=== PATIENT | female | born 1985 | race Caucasian/White ===

== ENCOUNTER 2022-03-17 07:06 | Outpatient (CLI) | payer OTHER, SELFPAY ==
--- NOTE | 2022-03-17 07:15 | CRLHL7_ITS ---
For Patients: As a result of the Century Cures Act, medical imaging exams and procedure reports are released immediately into your electronic medical record. You may view this report before your referring provider. If you have questions, please contact your health care provider. INDICATION: Lumbar radiculopathy. COMPARISON: 03/03/2022. TECHNIQUE: Sagittal T1, T2, and STIR sequences. Axial T2/gradient sequences. FINDINGS: Normal vertebral body alignment. No fractures. No vertebral body loss of height. No spondylolisthesis. No ligamentous injury. No suspicious osseous lesions. Number conus terminates at L1-2. Vertebral body hemangiomas at T12 and L1. T12-L1 L1-2 L2-3: No spinal canal neural foraminal narrowing. L3-4: Disc degeneration and posterior disc bulge. Tiny central annular fissure. Mild narrowing of spinal canal. Mild narrowing of the bilateral foramina. L4-5: Disc degeneration and posterior disc bulge. Flattening of ventral thecal sac mild narrowing of spinal canal. No neural foraminal narrowing. L5-S1: Disc degeneration loss of disc height. Diffuse disc bulge. There is a left paracentral subarticular disc protrusion measuring 7 mm in short axis. [id number] narrowing of spinal canal. Impingement of the traversing left S1 nerve root. Mild narrowing of bilateral foramina. Normal visualized SI joints. IMPRESSION: 1. Normal alignment. No fractures 2. At L3-4, posterior disc bulge. Tiny central annular fissure. Mild narrowing of the spinal canal and bilateral neural foramina 3. At L4-5, mild narrowing of the spinal canal 4. At L5-S1, left paracentral and subarticular disc protrusion. Mild to moderate narrowing of spinal canal. Impingement of the traversing left S1 nerve root. Mild narrowing of the bilateral neural foramina Dictated by Justino Parker MD @ 03/17/2022 3:30:39 PM (Electronically Signed)
== END 2022-03-17 07:07 | disposition home or self-care (01) ==
LOC: MRI 07:06
PROVIDERS: PCP Family Medicine; Visit Provider Physician Assistant
DX: M54.16 Radiculopathy, lumbar region (principal); M51.36 Other intervertebral disc degeneration, lumbar region; M51.26 Other intervertebral disc displacement, lumbar region; M51.37 Other intervertebral disc degeneration, lumbosacral region
CPT/HCPCS: 72148

== ENCOUNTER 2022-04-09 15:47 | Emergency (ER) | payer OTHER, SELFPAY ==
[2022-04-09 16:58] VITALS: BP 147/87; PULSE 80; RESP 18; TEMP 36.3; O2SAT 100; BMI 52.6
[2022-04-09] MEDS: predniSONE 10 MG TABLET 60 MG PO (18:09)
--- NOTE | 2022-04-09 18:35 | ED.GENADULT ---
HPI - General Adult General Date Seen: 04/09/22 Chief complaint: Back Injury/Pain Stated complaint: Back Pain, Left Leg Numbness Time Seen by Provider: 04/09/22 17:20 Source: patient History of Present Illness HPI narrative: Patient is a 37-year-old woman who presents with left lumbar radiculopathy secondary to known disc herniation with impingement of the S1 nerve root. She has had pain since February, she had an MRI done on March 17, she had a steroid injection done about 12 days ago. She said she had good pain relief with the lidocaine, had no pain for about 12 hours but then as the lidocaine wore off pain returned. She is scheduled to talk to her spine surgeon again on Monday, he has suggested that a diskectomy is likely the next step. She has been prescribed gabapentin and tramadol. She has had poor pain relief with those medications. She has pain in her left gluteal area which extends down to her left foot, and now she has some numbness in the ankle region as well. She does not have any weakness. She has not had any bowel or bladder changes. She has not had any fevers, nausea vomiting or other symptoms. She is not able to take ibuprofen secondary to previous VSG, although she has tried taking a couple of doses. That has not been helpful either. Related Data Previous Rx's Medication Instructions Recorded gabapentin 100 mg capsule 100 mg PO .UD #56 cap 03/18/22 gabapentin 300 mg capsule 300 mg PO QDAY #60 cap 03/26/22 alprazolam 1 mg tablet 1 mg PO QDAY #2 tab 03/28/22 tramadol 50 mg tablet 50 mg PO TID PRN #30 tab 03/29/22 tramadol 50 mg tablet 50 mg PO TID PRN #30 tab 03/29/22 gabapentin 300 mg capsule 300 mg PO TID #60 cap 04/09/22 oxycodone 5 mg tablet 5 mg PO Q6H PRN #14 tab 04/09/22 prednisone 20 mg tablet 20 mg PO DAILY #18 tab 04/09/22 Allergies Allergy/AdvReac Type Severity Reaction Status Date / Time No Known Drug Allergies Allergy Verified 03/26/22 10:17 Review of Systems Status of ROS: Reports: 10 or more systems reviewed and unremarkable except as noted in History and below PFSH PFSH Social History Smoking Status: Never smoker How often do you have a drink containing alcohol: never AUDIT-C Alcohol total score: 0 Non-prescribed substance use: denies use Exam Narrative: Exam Narrative: Vital signs as noted below. In general, an alert, nontoxic woman. Significantly overweight. Head: Normocephalic, atraumatic. Eyes: Pupils are equal reactive. Extraocular movements are full. Conjunctivae are normal. ENT: Mucous membranes are moist. Neck: Supple without lymphadenopathy. Heart: Regular rate and rhythm. No murmur or rub. Lungs: Clear bilaterally. No increased work of breathing, crackles or wheezes. Extremities: Well perfused. No edema. No calf tenderness. Pulses intact. Neurologic: Strength equal in bilateral lower extremities. Gait normal. Affect: Tearful. Skin: Warm and dry. Well perfused. Const: Vital Signs, click to edit/add: Vital Signs - 24 hr 04/09/22 16:58 Temperature 97.3 F L Pulse Rate [Right Pulse Oximeter] 80 Respiratory Rate 18 Blood Pressure [Ri ght Upper Arm] 147/87 H Pulse Oximetry 100 Documenting provider has reviewed patient's vital signs: yes Course Course Hospital Course: I had a fairly lengthy conversation with her. I do think tramadol may not be the best choice for her, and if we are going to use a narcotic we might as well as use something that is be more beneficial for her. I do think trying her on a steroid taper is reasonable, she was on brief few days of prednisone previously which she does not find helpful but I would like to try her on more targeted taper for back pain. She is willing to try that. She is out of gabapentin would like that refilled as well as that is been helping with sleep. I would like her to take Tylenol 1000 mg 3 times daily. I am going to give her oxycodone to use for breakthrough pain. I have discussed with her that using this now is likely going to give her more difficulty with pain control postoperatively assuming she does decide to pursue diskectomy, as she is going to be sensitized to narcotics. She understands this. She is having significant difficulty managing at home with her toddler, she has been managing with this pain for over a month and does not feel that she can continue as she has been, so we will go this route and she will follow up with her surgeon this week to discuss more definitive solutions. I do think that is reasonable given that she has an identifiable lesion on MRI that is amenable to surgery. Vital Signs Vital signs: Initial Vital Signs Temperature 97.3 F L 04/09/22 16:58 Temperature Source Temporal Artery Scan 04/09/22 16:58 Pulse Rate 80 04/09/22 16:58 Respiratory Rate 18 04/09/22 16:58 Blood Pressure 147/87 H 04/09/22 16:58 Blood Pressure Mean 107 04/09/22 16:58 Blood Pressure Position Sitting 04/09/22 16:58 Pulse Oximetry 100 04/09/22 16:58 Oxygen Delivery Method 04/09/22 16:58 Vital Signs Temperature 97.3 F L 04/09/22 16:58 Pulse Rate 80 04/09/22 16:58 Respiratory Rate 18 04/09/22 16:58 Blood Pressure 147/87 H 04/09/22 16:58 Pulse Oximetry 100 04/09/22 16:58 Temperature 97.3 F L 04/09/22 16:58 Pulse Rate 80 04/09/22 16:58 Respiratory Rate 18 04/09/22 16:58 Blood Pressure 147/87 H 04/09/22 16:58 Pulse Oximetry 100 04/09/22 16:58 Discharge Plan Discharge Clinical Impression: Acute lumbar radiculopathy Patient Disposition: Home, Self-Care Condition: Stable Instructions: Lumbar Radiculopathy (ED) Additional Instructions: Tylenol 1000 mg 3 times daily. Oxycodone as needed for breakthrough pain. Prednisone taper as prescribed. Follow-up with your spine surgeon on Monday as planned. Continue gabapentin as previously taking. Prescriptions: New gabapentin 300 mg capsule 300 mg PO TID Qty: 60 2RF Rx Instructions: 300 mg morning and afternoon 600 mg at bedtime oxycodone 5 mg tablet 5 mg PO Q6H PRN (Reason: pain) Qty: 14 0RF prednisone 20 mg tablet 20 mg PO DAILY Qty: 18 0RF Rx Instructions: Take 3 tabs po x 3 days, then 2 tabs po x 3 days, then 1 tab po x 3 days. No Action gabapentin 300 mg capsule 300 mg PO QDAY Qty: 60 0RF Rx Instructions: take two cap po in evening for back pain gabapentin 100 mg capsule 100 mg PO .UD Qty: 56 0RF Rx Instructions: Patient to take one cap am and noon and 6 caps at HS alprazolam 1 mg tablet 1 mg PO QDAY Qty: 2 0RF tramadol 50 mg tablet 50 mg PO TID PRN (Reason: pain) Qty: 30 0RF tramadol 50 mg tablet 50 mg PO TID PRN (Reason: pain) Qty: 30 0RF Rx Instructions: 1 tablet up to 3 times a day for severe pain only. Use in addition to gabapentin 600 mg at bedtime Follow Up/Referrals: Tran Alvarenga MD [Primary Care Provider] - Stand Alone Forms: MyHealth Info Instructions
== END 2022-04-09 18:35 | disposition home or self-care (01) ==
PROVIDERS: Emergency Provider Emergency Medicine; PCP Family Medicine
DX: M54.50 Low back pain, unspecified (principal)
CPT/HCPCS: 99283; 99284; J7512

== ENCOUNTER 2023-12-08 13:57 | Emergency (ER) | payer OTHER, SELFPAY ==
[2023-12-08] VITALS (21 sets, daily range): BP systolic 179–213; BP diastolic 112–127; PULSE 68–83; RESP 18–20; TEMP 36.5; O2SAT 96–100; BMI 56.1
--- NOTE | 2023-12-08 14:37 | ED.GENADULT ---
HPI - General Adult General Date Seen: 12/08/23 Chief complaint: Abdominal Pain Stated complaint: sharp abdominal pain, vomiting Time Seen by Provider: 12/08/23 14:36 History of Present Illness HPI narrative: 38-year-old female with a history of prothrombin gene mutation and pulmonary embolism, hypothyroidism, obesity, low back pain with left lumbar radiculopathy, anxiety, presenting to the ER this afternoon with her for abrupt onset of severe left lower quadrant abdominal pain that began less than hour prior to arrival this afternoon. She denies any recent unusual symptoms other than for about the past 5 or 6 months her mental cycle has been very irregular and heavy and more painful than. Over most of her life she has had fairly predictable periods but over the past several months periods have been heavier, not occurring at regular intervals and painful. Most recent period started about fiber 6 days ago and actually ended yesterday. She was having some right-sided pelvic pain with that. But not much beyond the left side today she had not yet gone to her doctor to getting checkup for the irregular periods. No other symptoms lately. No fever chills. No nausea or vomiting. Bowel movements have been normal. Urination has been normal. No known injury. No cough. No rib pain. She was at home when she has had sudden onset of really severe pain in her left lower quadrant. Does not really radiate. It was so intense it made her nauseous and vomit once or twice with nonbilious nonbloody emesis. She was shaking and crying due to the pain. Related Data Home Medications Medication Instructions Recorded Confirmed acetaminophen 325 mg capsule 1,000 mg PO TID PRN 04/14/22 08/25/23 (Tylenol) Allergies Allergy/AdvReac Type Severity Reaction Status Date / Time codeine Allergy Intermediate Nausea Verified 08/25/23 09:03 [facility] Medical History (Updated 12/08/23 @ 18:32 by Kwasi Vyas MD) Obstructive sleep apnea treated with continuous positive airway pressure (CPAP) ?G47.33 - Obstructive sleep apnea (adult) (pediatric) (ICD-10) ?Z99.89 - Dependence on other enabling machines and devices (ICD-10) Morbid obesity ?E66.01 - Morbid (severe) obesity due to excess calories (ICD-10) Hypothyroidism ?E03.9 - Hypothyroidism, unspecified (ICD-10) Hypertension ?I10 - Essential (primary) hypertension (ICD-10) History of pulmonary embolism (08/2019) ?Z86.711 - Personal history of pulmonary embolism (ICD-10) Fatigue ?R53.83 - Other fatigue (ICD-10) Encounter for supervision of high risk in second trimester, antepartum ?O09.92 - Supervision of high risk , unspecified, second trimester (ICD-10) Surgical History (Updated 05/05/22 @ 15:25 by Tran Alvarenga MD) S/P epidural steroid injection (03/29/22) ?Z92.241 - Personal history of systemic steroid therapy (ICD-10) History of sleeve gastrectomy (12/11/18) ?Z90.3 - Acquired absence of stomach [part of] (ICD-10) History of cholecystectomy (12/2018) ?Z90.49 - Acquired absence of other specified parts of digestive tract (ICD-10) History of bladder surgery (1993) ?Z98.890 - Other specified postprocedural states (ICD-10) Family History (Updated 04/13/22 @ 15:10 by Rudy Santos) Mother Diabetes Aunt Diabetes Maternal Grandfather Diabetes Father Family history of early CAD, Onset Age: 45 Brother Paranoid schizophrenia Paternal Grandfather Stroke Other Uterine cancer Social History (Updated 06/03/22 @ 09:02 by Tran Alvarenga MD) Narrative: Exercise involving walking and biking , teenage program director alexys, 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 Over nourished. Alert. Conversant. Non toxic. HENT: Head: Atraumatic. Nose: Nose normal. Mouth/Throat: Oral mucosa is clear and moist. no trismus. Pharynx normal. Tonsils symmetric. No tonsillar enlargement, erythema, or exudate. Eyes: Conjunctivae normal. EOM normal. Pupils equal, round, and reactive to light. No scleral icterus. Neck: Normal range of motion. Neck supple. No tracheal deviation present. Cardiovascular: Normal rate, regular rhythm. No gallop. No friction rub. No murmur heard. Symmetric radial artery pulses Pulmonary/Chest: Effort normal. No stridor. No respiratory distress. No wheezes. No rales. No rhonchi . No tenderness. Abdominal: Soft. Bowel sounds normal. Protuberant due to body habitus but no distension. No mass. Left lower quad tenderness. Unable to appreciate masses but exam limited by body habitus. No left CVA tenderness. No rebound. No guarding. Musculoskeletal: RUE: Normal range of motion. No tenderness. No deformity LUE: Normal range of motion. No tenderness. No deformity RLE: Normal range of motion. No edema. No tenderness. No deformity LLE: Normal range of motion. No edema. No tenderness. No deformity Neurological: Alert and oriented to person, place, and time. Normal strength. CN II-VII intact. No sensory deficit. GCS eye subscore is 4. GCS verbal subscore is 5. GCS motor subscore is 6. Normal coordination Skin: Skin is warm and dry. No rash noted. No pallor. Normal capillary refill. Psychiatric: Normal mood. Normal affect. Const: Vital Signs, click to edit/add: Vital Signs - 24 hr 12/08/23 14:19 12/08/23 16:33 12/08/23 16:34 Temperature 97.7 F Pulse Rate 70 73 Pulse Rate [Pulse Oximeter] 83 Respiratory Rate 20 Blood Pressure 202/123 H Blood Pressure [Ri ght Upper Arm] 179/127 H Pulse Oximetry 100 100 100 Oxygen Delivery [facility] Room Air Room Air 12/08/23 16:45 12/08/23 17:00 12/08/23 17:02 Temperature Pulse Rate 71 76 75 Pulse Rate [Pulse Oximeter] Respiratory Rate Blood Pressure 202/117 H Blood Pressure [Ri ght Upper Arm] Pulse Oximetry 100 100 100 Oxygen Delivery [facility] 12/08/23 17:15 12/08/23 17:30 12/08/23 17:31 Temperature Pulse Rate 80 74 77 Pulse Rate [Pulse Oximeter] Respiratory Rate Blood Pressure 199/118 H Blood Pressure [Ri ght Upper Arm] Pulse Oximetry 99 99 98 Oxygen Delivery [facility] 12/08/23 17:45 12/08/23 18:03 12/08/23 18:05 Temperature Pulse Rate 73 68 76 Pulse Rate [Pulse Oximeter] Respiratory Rate 18 Blood Pressure 213/114 H Blood Pressure [Ri ght Upper Arm] Pulse Oximetry 98 96 97 Oxygen Delivery Me thod 12/08/23 18:06 12/08/23 18:15 12/08/23 18:30 Temperature Pulse Rate 76 69 70 Pulse Rate [Pulse Oximeter] Respiratory Rate Blood Pressure Blood Pressure [Ri ght Upper Arm] Pulse Oximetry 97 97 96 Oxygen Delivery Me [facility]od Room Air 12/08/23 18:32 12/08/23 18:33 12/08/23 18:43 Temperature Pulse Rate 75 78 76 Pulse Rate [Pulse Oximeter] Respiratory Rate Blood Pressure 188/112 H 193/127 H Blood Pressure [Ri ght Upper Arm] Pulse Oximetry 97 98 98 Oxygen Delivery Me thod Room Air 12/08/23 18:45 12/08/23 19:00 12/08/23 19:02 Temperature Pulse Rate 71 75 74 Pulse Rate [Pulse Oximeter] Respiratory Rate Blood Pressure 181/116 H Blood Pressure [Ri ght Upper Arm] Pulse Oximetry 96 98 98 Oxygen Delivery Me [facility]od Course Vital Signs Vital signs: Initial Vital Signs Temperature 97.7 F 12/08/23 14:19 Temperature Source Temporal Artery Scan 12/08/23 14:19 Pulse Rate 83 12/08/23 14:19 Respiratory Rate 20 12/08/23 14:19 Blood Pressure 179/127 H 12/08/23 14:19 Blood Pressure Mean 144 H 12/08/23 14:19 Blood Pressure Position Sitting 12/08/23 14:19 Pulse Oximetry 100 12/08/23 14:19 Oxygen Delivery Method Room Air 12/08/23 14:19 Vital Signs Temperature 97.7 F 12/08/23 14:19 Pulse Rate 83 12/08/23 14:19 Respiratory Rate 20 12/08/23 14:19 Blood Pressure 179/127 H 12/08/23 14:19 Pulse Oximetry 100 12/08/23 14:19 Oxygen Delivery Method Room Air 12/08/23 14:19 Temperature 97.7 F 12/08/23 14:19 Pulse Rate 74 12/08/23 19:02 Respiratory Rate 18 12/08/23 18:05 Blood Pressure 181/116 H 12/08/23 19:02 Pulse Oximetry 98 12/08/23 19:02 Oxygen Delivery Method Room Air 12/08/23 18:33 Medications Administered Medications: Discontinued Medications Generic Name Dose Route Start Last Admin Trade Name Freq PRN Reason Stop Dose Admin Hydromorphone HCl 0.5 mg 12/08/23 14:50 12/08/23 16:01 Hydromorphone 0.5 Mg/0.5 Ml Inj IVP 0.5 mg Q1H PRN Administration Pain Hydromorphone HCl 1 mg 12/08/23 17:30 12/08/23 17:30 Hydromorphone 0.5 Mg/0.5 Ml Inj IVP 12/08/23 17:31 1 mg ONCE ONE Administration Sodium Chloride 1,000 mls @ 1,000 mls/hr 12/08/23 14:45 12/08/23 18:34 0.9 % Sodium Chloride 1000 Ml IV 12/08/23 15:44 Infused .Q1H GUERO Infusion Ketorolac Tromethamine 15 mg 12/08/23 14:41 12/08/23 16:02 Ketorolac 15 Mg/Ml Inj IVP 12/08/23 14:42 15 mg ONCE ONE Administration Ketorolac Tromethamine 30 mg 12/08/23 15:46 12/08/23 16:09 Ketorolac 30 Mg/Ml Inj IM 12/08/23 15:47 Not Given ONCE ONE Ondansetron HCl 4 mg 12/08/23 14:41 12/08/23 16:09 Ondansetron 2 Mg/Ml Inj IVP 12/08/23 14:42 Not Given ONCE ONE Ondansetron HCl 4 mg 12/08/23 15:52 12/08/23 15:55 Ondansetron Odt 4 Mg Tab PO 12/08/23 15:53 4 mg ONCE ONE Administration Ondansetron HCl 4 mg 12/08/23 19:05 12/08/23 19:05 Ondansetron 2 Mg/Ml Inj IVP 12/08/23 19:06 4 mg ONCE ONE Administration Medical Decision Making [facility] Narrative Medical decision making narrative: Pleasant 38-year-old female presenting to the ER today with acute onset of severe excruciating left lower quadrant and left-sided abdominal pain. Initial concern was for possible ovarian pathology such as cyst, cyst rupture, torsion, ectopic . We did send this patient for stat pelvic ultrasound and unfortunately due to body habitus were not able to visualize her ovaries. No clear abnormality found on pelvic ultrasound. Differential would also include kidney stone, pyelonephritis,. Less likely would be colitis, diverticulitis or bowel pathology given the very abrupt nature of the onset. CT abdomen pelvis is obtained and shows evidence for an acute, apparently spontaneous, left perinephric hematoma and hemorrhage from the left kidney. Discussed with radiologist over the phone. Unclear cause. Possibly could be rupture of a previously on recognize cyst but able unable to determine that on the CT. No definite signs of active extravasation but CT angio of the renal arteries would be necessary to definitively rule that out. No clear evidence for extension beyond the renal capsule or other signs of expanding retroperitoneal hematoma. At this point no significant anemia. No hypotension, in fact blood pressure is elevated, likely due to pain from the bleed. No signs of hemorrhage shock. She will need inpatient evaluation and evaluation by Urology. Unfortunately urology not available in [place] therefore transfer is indicated. Patient will be willing to transfer anywhere but has had surgeries at the [facility] system before. We attempted to contact [facility]. However there are no beds available at the [facility] system to accompany the patient. Therefore we contacted [facility] and they are able to take the patient as an emergent transfer as ER to ER. She will be transferred by ground EMS to [facility]. CT images are digitally transmitted to [facility] and patient is sent with copies of her labs. Lab Data Labs: Lab Results 12/08/23 12/08/23 Range/Units 16:00 18:00 WBC 9.10 (4.50-11.00) K/uL RBC 4.86 (4.00-5.20) m/uL Hgb 12.0 (12.0-16.0) gm/dL Hct 38.1 (33.0-51.0) % MCV 78 L (80-100) fL MCH 25 L (26-34) pg MCHC 32 (32-36) gm/dL RDW Coeff of Ronald 14.4 (11.5-15.5) % Plt Count 214 (140-440) K/uL Neut % (Auto) 82.1 H (42.0-72.0) % Lymph % (Auto) 13.0 L (20-44) % Dawson % (Auto) 4.0 (0.0-11.0) % Eos % (Auto) 0.5 (0.0-7.0) % Baso % (Auto) 0.2 (0.0-3.0) % Neut # (Auto) 7.50 H (1.7-7.0) K/uL Lymph # (Auto) 1.20 (0.90-2.90) K/uL Dawson # (Auto) 0.40 (0.00-0.90) K/UL Eos # (Auto) 0.05 (0.00-0.50) K/uL Baso # (Auto) 0.02 (0.00-0.30) K/uL Abs Immat Gran (auto) 0.02 (0.00-0.30) K/uL Imm/Tot Granulo (auto) 0.2 % Sodium 139 (135-149) mmol/L Potassium 3.9 (3.6-5.1) mmol/L Chloride 109 (96-114) mmol/L Carbon Dioxide 23 (20-32) mmol/L Anion Gap 7 (7-15) mEq/L BUN 14 (5-24) mg/dL Creatinine 0.9 (0.5-1.5) mg/dL Estimated Creat Clear 87.70 Estimated GFR 83 ml/min Glucose 106 (60-115) mg/dL Lactate 1.1 (0.5-1.9) mmol/L Calcium 8.5 (8.4-10.6) mg/dL Urine Color Yellow (Yellow) Urine Appearance Clear (Clear) Urine pH 7.5 (5.0-8.5) Ur Specific [place] 1.015 (1.000-1.030) Urine Protein 2+ A (Negative) Urine Glucose (UA) Negative (Negative) Urine Ketones Negative (Negative) Urine Blood 3+ A (Negative) Urine Nitrite Negative (Negative) Urine Bilirubin Negative (Negative) Urine Urobilinogen 0.2 (0.2-1.0) Ur Leukocyte Esterase Negative (Negative) Urine RBC 0-2 (0-2) Urine WBC 0-2 (0-5) Ur Squamous Epith Cells Few (None-Few) Urine Bacteria Few A (None) Urine HCG, Qual Negative (Negative) Imaging Data US pelvis: Attestation: I have reviewed the pertinent imaging results. Radiologist's impression: Impression: 1. Suboptimal examination secondary to habitus and patient discomfort. 2. Normal sonographic appearance of the uterus. 3. Bilateral ovaries are not visualized. CT scan - abdomen: Attestation: I have reviewed the pertinent imaging results. Radiologist's impression: IMPRESSION: 1. Moderate left subcapsular and perinephric hematoma. In the absence of known trauma, this may represent rupture of a renal cyst or mass. 2. Splenomegaly. Discharge Plan Discharge Clinical Impression: Perinephric hematoma Patient Disposition: Xfer Other Prescriptions: No Action acetaminophen [Tylenol] 325 mg capsule 1,000 mg PO TID PRN Stand Alone Forms: MyHealth Info Instructions
--- NOTE | 2023-12-08 14:41 | US_ITS ---
Patient: YAMEL YIP Facility:?[facility] Patient ID:?[id number] Site Patient ID:?[id number]. Site :?[id number] Study:?US-Pelvis PELVIS TV-12/08/2023 3:49:51 PM Ordering Physician:?REGINA JAIMES M.D. Final Report: Indication: Left lower quadrant abdominal pain Technique: Real-time sonographic images of the pelvis were obtained transvaginally utilizing grayscale, color, and Doppler imaging. Comparison: None. Findings: Suboptimal examination secondary to habitus and patient discomfort. Uterus: Appearance: Nabothian cysts. Position: Anteverted Size: 9.3 x 4.8 x 5.6 cm. Endometrial stripe: 11 mm. Right ovary: Not visualized. Left ovary: Not visualized. Free fluid: None. Impression: 1. Suboptimal examination secondary to habitus and patient discomfort. 2. Normal sonographic appearance of the uterus. 3. Bilateral ovaries are not visualized. Dictated by Jameel Limon MD @ 12/08/2023 4:12:02 PM Signed by:?Jameel Limon MD @12/08/2023 4:12:02 PM (Electronic Signature)
--- NOTE | 2023-12-08 15:47 | CT_ITS ---
Patient: YAMEL YIP Facility:?[facility] Patient ID:?[id number] Site Patient ID:?[id number]. Site :?[id number] Study:?CT-Abdomen/Pelvis W/ISOVUE 370 150CC-12/08/2023 4:30:05 PM Ordering Physician:CIERRA Final Report: INDICATION: Left lower quadrant abdominal pain TECHNIQUE: CT of the abdomen and pelvis was obtained with 150 mL of Isovue 370 intravenous contrast. Please note that all CT scans at this facility use dose modulation, iterative reconstruction, and/or weight-based dosing when appropriate to reduce radiation dose to as low as reasonably achievable. COMPARISON: Same day ultrasound. FINDINGS: Lower thorax: Normal. Liver and biliary tree: Normal. Gallbladder: Status post cholecystectomy. Spleen: Enlarged, measuring 15.2 centimeter in anteroposterior dimension (50). Pancreas: Normal. Adrenal glands: Normal. Kidneys and ureters: Subcentimeter hypoattenuating lesions are too small to characterize and are favored to represent cysts. No hydronephrosis or obstructing renal calculi. Moderate left subcapsular and perinephric hematoma measuring roughly 6.6 x 1.6 x 9.5 centimeter (, ). Gastrointestinal tract: Appendix is not definitively visualized. Status post sleeve gastrectomy. No evidence of bowel obstruction. Peritoneal cavity: Moderate left perinephric stranding and hematoma. Bladder: Normal. Pelvic organs: Normal. Vasculature: Normal. Lymph nodes: Normal. Abdominal wall: Trace fat containing periumbilical hernia. Musculoskeletal: Normal. IMPRESSION: 1. Moderate left subcapsular and perinephric hematoma. In the absence of known trauma, this may represent rupture of a renal cyst or mass. 2. Splenomegaly. Findings discussed with Dr. Vyas at 5:05 p.m. on 12/08/2023. Please note that all CT scans at this facility use dose modulation, iterative reconstruction, and/or weight-based dosing when appropriate to reduce radiation dose to as low as reasonably achievable. Dictated by Jameel Limon MD @ 12/08/2023 5:06:39 PM Signed by:?Jameel Limon MD @12/08/2023 5:06:39 PM (Electronic Signature)
[2023-12-08] MEDS: ONDANSETRON ODT 4 MG TAB PO (15:55)
[2023-12-08] MEDS: HYDROmorphone 0.5 mg/0.5 ml inj IVP (16:01)
[2023-12-08] MEDS: KETOROLAC 15 MG/ML inj IVP (16:02)
[2023-12-08 16:13] LABS: Lactate* 1.1 mmol/L (0.5-1.9)
[2023-12-08] MEDS: 0.9 % SODIUM CHLORIDE 1000 ml 1,000 ML IV (16:21)
[2023-12-08 16:27] LABS: Chloride* 109 mmol/L (96-114); Potassium* 3.9 mmol/L (3.6-5.1); Sodium* 139 mmol/L (135-149)
[2023-12-08 16:30] LABS: Anion Gap 7 mEq/L (7-15); Blood Urea Nitrogen* 14 mg/dL (5-24); Carbon Dioxide* 23 mmol/L (20-32); Creatinine* 0.9 mg/dL (0.5-1.5); Estimated Glomerular Filt Rate 83 ml/min
[2023-12-08 16:31] LABS: Basophils Absolute Auto 0.02 K/uL (0.00-0.30); Basophils Percent Auto 0.2 % (0.0-3.0); Calcium* 8.5 mg/dL (8.4-10.6); Eosinophils Absolute Auto 0.05 K/uL (0.00-0.50); Eosinophils Percent Auto 0.5 % (0.0-7.0); Glucose* 106 mg/dL (60-115); Hematocrit 38.1 % (33.0-51.0); Immature Granulocytes Abs Auto 0.02 K/uL (0.00-0.30); Immature Granulocytes Pct Auto 0.2 %; Mean Corpuscular HGB Conc 32 gm/dL (32-36); Mean Corpuscular Hemoglobin 25 pg (26-34); Mean Corpuscular Volume 78 fL (80-100); Neutrophils Percent Auto 82.1 % (42.0-72.0); Platelet Count* 214 K/uL (140-440); RDW Coefficient of Variation % 14.4 % (11.5-15.5); Red Blood Count 4.86 m/uL (4.00-5.20)
[2023-12-08 16:40] LABS: Slide Review Reflex No
[2023-12-08] MEDS: HYDROmorphone 0.5 mg/0.5 ml inj 1 MG IVP (17:30)
[2023-12-08 18:10] LABS: Appearance Urine Clear (Clear); Bilirubin Urine Negative (Negative); Blood Urine 3+ (Negative); Color Urine Yellow (Yellow); Glucose Urine Negative (Negative); Ketones Urine Negative (Negative); Leukocyte Esterase Urine Negative (Negative); Nitrite Urine Negative (Negative); Protein Urine 2+ (Negative); Specific Gravity Urine 1.015 (1.000-1.030); Urobilinogen Urine 0.2 (0.2-1.0); pH Urine 7.5 (5.0-8.5)
[2023-12-08 18:32] LABS: Bacteria Urine Few; RBC Urine 0-2 (0-2); Squamous Epithelial Cell Urine Few (None-Few); WBC Urine 0-2 (0-5)
[2023-12-08 18:37] LABS: Ur HCG Qualitative* Negative (Negative)
[2023-12-08] MEDS: ONDANSETRON 2 MG/ML inj 4 MG IVP (19:05)
== END 2023-12-08 19:10 | disposition other institution (70) ==
PROVIDERS: Emergency Provider Emergency Medicine; PCP Family Medicine
DX: K66.1 Hemoperitoneum (principal)
CPT/HCPCS: 36415; 74177; 76830; 80048; 81001; 81025; 83605; 85025; 87086; 87186; 96372; 96374; 96375; 96376; 99284; 99285; A9270; J1170; J1885; J2405; J7030; Q9967

== ENCOUNTER 2023-12-08 18:59 | Outpatient (CLI) | payer OTHER, SELFPAY ==
--- OUTSIDE RECORDS SUMMARY | 2023-12-16 14:17 | XMS_ITS | Clinical Summary ---
Author Name Unknown Organization [facility] Address [place], [place] [address] Care Team Providers Care Lead Java Programmer Name Role Phone Tran Alvarenga MD Primary Care Provider + Allergies Active Allergy Reactions Criticality Noted Date Comments Codeine Nausea Only 12/06/2018 Nsaids (Non-Steroidal Anti-Inflammatory Drug) Other - Describe In Comment Field 06/16/2022 Should avoid d/t previous gastric sleeve surgery Medications Medication Sig Dispensed Refills Start Date End Date Status acetaminophen (TYLENOL) 325 mg tablet Take 650 mg by mouth. 05/29/2020 Active gabapentin (NEURONTIN) 100 mg capsule 03/18/2022 Active methocarbamoL (Robaxin-750) 750 mg tabletIndications:A cute post-operative pain Take 1 Tablet (750 mg) by mouth every 6 hours if needed for Muscle Spasm. 10 Tablet 06/19/2022 Active oxyCODONE (ROXICODONE) 5 mg immediate release tabletIndications:A cute post-operative pain Take 1-2 Tablets (5-10 mg) by mouth every 4 hours if needed for Pain. 16 Tablet 06/19/2022 Active methylPREDNISolone (MEDROL DOSEPAK) 4 mg tabletIndications:A cute post-operative pain Take by mouth as instructed per packaging. 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 Church Vitamin D deficiency 10/30/2018 Overview: 10/19/18 = 6.4 Fatty liver 10/23/2018 Overview: Per US 10/22/18 Treatment: Weight loss surgery planned Cholelithiasis 10/23/2018 Overview: Per US 10/22/2018 Treatment: cholecystectomy planned at time of weight loss surgery Obstructive sleep apnea 10/11/2018 Overview: 10/05/2018 severe obstructive sleep apnea CPAP Morbid obesity with BMI of 70 and over, adult High blood pressure 08/23/2018 Overview: 08/2018 Hydrachloathiazide Lisinopril Encounters Date Type Department Care Team Description 12/08/2023 Hospital Encounter [facility] [address] [place] [address] Shop Helper, Pawel from Last 3 Months Immunizations Name Administration Dates Next Due Influenza, IIV4 (=>6mos) MDV 06/29/2021 Tdap 04/03/2020,01/09/2018 Family History Medical History Relation Name Comments Alcoholism Brother Hyperlipidemia Brother Hypertension Brother Obesity Brother Psychiatric illness Brother Cancer Father Coronary artery disease Father Heart Disease Father Hyperlipidemia Father Hypertension Father Lung cancer Father Coronary artery disease Maternal Grandfather Diabetes Maternal Grandfather Hyperlipidemia Maternal Grandfather Hypertension Maternal Grandfather Obesity Maternal Grandfather Other Maternal Grandmother meningi tis - cause of Cancer Mother Diabetes Mother Hypertension Mother Obesity Mother Coronary artery disease Paternal Grandfather Heart attack Paternal Grandfather cause o f Hypertension Paternal Grandfather Stroke Paternal Grandfather Coronary artery disease Paternal Grandmother Hypertension Paternal Grandmother Stroke Paternal Grandmother Relation Name Status Comments Brother Alive Father Alive Maternal Grandfather Alive Maternal Grandmother (Age 61) Mother Alive Paternal Grandfather (Age 79) Paternal Grandmother (Age 78) Social History Tobacco Use Types Packs/Day Years Used Date Smoking Tobacco: Never Smokeless Tobacco: Never Tobacco Cessation:Counseling Given: No Alcohol Use Standard Drinks/Week Comments Yes 0 (1 standard drink = 0.6 oz pur e alcohol) very rarely PHQ-2 Answer Date Recorded PHQ-2 Score 0 06/14/2019 Sex and Gender Information Value Date Recorded Sex Assigned at Not on file Gender Identity Not on file Sexual Orientation Not on file Obstetrics History Para Term AB IAB SAB Ectopic Multiple Livin g Live Births 1 Date Outcome GA Total Labor Labor/2nd/3rd Weight Sex Delivery Anes PTL Mini A1 A5 Name Cl in Last Filed Vital Signs Vital Sign Reading Time Taken Comments Blood Pressure 147/86 06/17/2022 11:30 AM CDT Pulse 63 06/17/2022 11:30 AM CDT Temperature 36.3 ??C (97.3 ??F) 06/17/2022 1 0:47 AM CDT Respiratory Rate 15 06/17/2022 11:2 9 AM CDT Oxygen Saturation 99% 06/17/2022 11: 30 AM CDT Inhaled Oxygen Concentration - - Weight 165.2 kg (364 lb 4.8 oz) 06/17/2022 7:11 AM CDT Height 175.3 cm (5' 9) 06/17/2022 7:11 AM CDT Body Mass Index 53.8 06/17/2022 7:11 AM CDT Plan of Treatment Health Maintenance Due Date Last Done Comments HIV for age 15-65 01/27/1999 Hepatitis C screening for age 18-79 01/27/2002 Pap test for age 21-65 11/02/2018 11/02/2015, 2015 Depression screening for age 12+ 10/01/2019 10/01/2018 BMI (ht and wt on same day) for age 18+ 05/12/2023 05/12/2022, 11/14/2019, 06/14/2019, Additional history exists COVID-19 vaccine series ( season) 2023 07/26/2021, 12/31/2020, 12/03/2020 Influenza for age 9-49 05/12/2024 06/29/2021 Tetanus booster 04/03/2030 04/03/2020, 01/09/2018 Tdap Completed 04/03/2020, 01/09/2018 Pneumococcal series for age 6-64 Aged Out No longer eligible based on patient's age to complete this topic Medical Devices Implanted Type Area Weather Forecaster Device Identifier Shelf Expiration Date Model / Serial / Lot Mesh Ventral 60 Seamguard [employer] Flex - [id number] Implanted:Qty: 5 on 12/11/2018 by Bryce Church MD at [facility] [employer] 09/10/2021 [id number] # / / [id number] Procedures Procedure Name Priority Date/Time Associated Diagnosis Comments FORCE VARIATION EQUIPMENT TENDER THIN PREP PAP SCREEN IMAGED Routine 11/02/2015 12:00 PM ODD JOB LABORER from Last 3 Months or Most Recently Relevant to Health Maintenance Results * FORCE VARIATION EQUIPMENT TENDER THIN PREP PAP SCREEN IMAGED (11/02/2015 12:00 PM ODD JOB LABORER) FORCE VARIATION EQUIPMENT TENDER CYTOLOGY See Anatomic Pathology case 11/06/2015 3:00 PM ODD JOB LABORER [facility] [employer] [facility] Specimen (specimen) (Cervical) Client Collect / Unknown 11/02/2015 12:00 PM ODD JOB LABORER 11/02/2015 6:37 PM ODD JOB LABORER Chelsie Dave MD PATHOLOGY/C [facility] [address] [place] [address], from Last 3 Months or Most Recently Relevant to Health Maintenance Advance Directives * Full Code (Latest Code Status on File) Date Activated Date Inactivated Comments 06/17/2022 6:49 AM 06/17/2022 1:59 PM Question Answer Comments Code Status Discussion: Per Existing Order * Full Code Date Activated Date Inactivated Comments 12/11/2018 10:37 AM 12/12/2018 7:02 PM Care Teams Lead Java Programmer Relationship Specialty Start Date End Date Tran Alvarenga MD [address] [place] [address] PCP - General Family Practice 06/25/18
== END 2023-12-08 19:00 | disposition home or self-care (01) ==
LOC: AMB 12-16 14:15
PROVIDERS: PCP Family Medicine; Visit Provider Family Medicine
DX: S37.01 Minor contusion of kidney (principal)
CPT/HCPCS: A0425; A0427

== ENCOUNTER 2024-06-21 08:06 | Outpatient (CLI) | payer OTHER, SELFPAY ==
--- OUTSIDE RECORDS SUMMARY | 2024-06-21 08:07 | XMS_ITS | Clinical Summary ---
Author Organization [employer] [facility] Address [place], [place] [address] Care Team Providers Care Desktop Analyst Name Role Phone Tran Alvarenga MD Primary [...] assisted sleeve gastrectomy and chol ecystectomy 12/11/2018 Overview (12/11/2018): Dr. Church Vitamin D deficiency 10/30/2018 Overview (10/30/2018): 10/19/18 = 6.4 Fatty liver 10/23/2018 Overview (10/23/2018): Per US 10/22/18 Treatment: Weight loss surgery planned Cholelithiasis 10/23/2018 Overview (10/23/2018): Per US 10/22/2018 Treatment: cholecystectomy planned at time of weight loss surgery Obstructive sleep apnea 10/11/2018 Overview (10/11/2018): 10/05/2018 severe obstructive sleep apnea CPAP Morbid obesity with BMI of 70 and over, adult High blood pressure 08/23/2018 Overview (08/23/2018): 08/2018 Hydrachloathiazide Lisinopril Immunizations Name Administration Dates Next Due Influenza, [...] Outcome GA Total Labor Labor/2nd/3rd Weight Sex Type Anes PTL Mini A1 A5 Name Clin Last Filed Vital Signs Vital Sign Reading [...] 06/14/2019, Additional history exists COVID-19 vaccine series (2023- season) 2024 07/26/2021, 12/31/2020, 12/03/2020 Influenza for age 9-49 05/12/2024 06/29/2021 Tetanus booster 04/03/2030 04/03/2020, 01/09/2018 Tdap Completed 04/03/2020, 01/09/2018 Pneumococcal series for age 6-64 Aged Out No longer eligible based on patient's age to complete this topic Medical Devices Implanted Type Area Rn Procedures Device Identifier Shelf Expiration Date Model / Serial / Lot Mesh Ventral 60 Seamguard [place] Flex - [id number] Implanted:Qty: 5 on 12/11/2018 by Bryce Church MD at [facility] [employer] [facility] [employer] 09/10/2021 [id number] # / / [id number] Procedures Procedure Name Priority Date/Time Associated Diagnosis Comments CARD DOFFER THIN PREP PAP SCREEN IMAGED Routine 11/02/2015 12:00 PM PUTTY PATCHER from Last 3 Months or Most Recently Relevant to Health Maintenance Results * CARD DOFFER THIN PREP PAP SCREEN IMAGED (11/02/2015 12:00 PM PUTTY PATCHER) CARD DOFFER CYTOLOGY See Anatomic Pathology case 11/06/2015 3:00 PM PUTTY PATCHER [facility] Specimen (specimen) (Cervical) Client Collect / Unknown 11/02/2015 12:00 PM PUTTY PATCHER 11/02/2015 6:37 PM PUTTY PATCHER Chelsie Dave MD PATHOLOGY/C YTOLOGY Performing Organization Address City/State/[facility] Co de Phone Number [facility] [address] [place] [address], from Last 3 Months or Most Recently Relevant to Health Maintenance Advance Directives * Full Code (Latest Code Status on File) Date Activated Date Inactivated Comments 06/17/2022 6:49 AM 06/17/2022 1:59 PM Question Answer Comments Code Status Discussion: Per Existing Order * Full Code Date Activated Date Inactivated Comments 12/11/2018 10:37 AM 12/12/2018 7:02 PM Care Teams Desktop Analyst Relationship Specialty Start Date End Date Tran Alvarenga MD [address] [place] [id number] PCP - General Family Practice 06/25/18
[2024-06-28 06:59] LABS: HPV Source Cervix; HPV, High Risk by TMA Not Detected
== END 2024-06-21 08:07 | disposition home or self-care (01) ==
PROVIDERS: PCP Family Medicine; Visit Provider Family Medicine
DX: Z12.4 Encounter for screening for malignant neoplasm of cervix (principal); I10 Essential (primary) hypertension; E78.5 Hyperlipidemia, unspecified; E03.9 Hypothyroidism, unspecified
CPT/HCPCS: 80053; 80061; 84443; 87624; 87625; 88141; 88142

== ENCOUNTER 2024-06-27 11:18 | Outpatient (CLI) | payer OTHER, SELFPAY ==
--- NOTE | 2024-06-27 11:30 | CRLHL7_ITS ---
For Patients: As a result of the Century Cures Act, medical imaging exams and procedure reports are released immediately into your electronic medical record. You may view this report before your referring provider. If you have questions, please contact your health care provider. BILATERAL SCREENING MAMMOGRAM WITH COMPUTER-AIDED DETECTION AND TOMOSYNTHESIS TECHNIQUE: CC and MLO views were obtained. These mammographic images have been obtained using full-field digital technique. These mammographic images were interpreted with the benefit of computer-aided detection. Breast Tomosynthesis was used in this interpretation. COMPARISON FILM: Baseline. FINDINGS: There are scattered areas of fibroglandular density. IMPRESSION: There is no radiographic evidence for malignancy. ASSESSMENT: BI-RADS Category 1: Negative RECOMMENDATION: Routine screening mammogram in 1 year. A lay language report of this examination will be provided to the patient. Jose Elias Chavez M.D. Diagnostic Radiologist [email or web address] SP/Dictated by: Jose Elias Chavez MD @ 07/02/2024 11:18:00 AM (Electronically Signed)
== END 2024-06-27 11:19 | disposition home or self-care (01) ==
LOC: MAMMO 11:19
PROVIDERS: PCP Family Medicine; Visit Provider Family Medicine
DX: Z12.31 Encounter for screening mammogram for malignant neoplasm of breast (principal)
CPT/HCPCS: 77063; 77067